=== PATIENT | male | born 1950 | race Caucasian/White ===

== ENCOUNTER 2025-02-17 22:03 | Emergency (ER) | payer SELFPAY ==
[~2025-02-17] VITALS: Ht 170.2 cm; Wt 120.0 kg
[2025-02-17 22:20] VITALS: BP 138/82; PULSE 84; RESP 18; TEMP 98; O2SAT 96
[2025-02-17 23:08] LABS: PLATELET COUNT (AUTO) 199 K/uL (150-450); RED BLOOD CELL COUNT(AUTO) 5.49 MIL/uL (4.50-5.90); RED CELL DISTRIBUTION WIDTH 13.1 % (11.5-14.5); WHITE BLOOD COUNT (AUTO) 11.1 K/uL (4.5-11.0)
[2025-02-17] MEDS: ZINC OXIDE 16% PASTE 57 GM TUBE TP ONE (23:14)
[2025-02-17 23:17] LABS: CALCIUM, TOTAL 9.2 mg/dL (8.8-10.5); CREATININE 0.71 mg/dL (0.60-1.30); GLOMERULAR FILTR. RATE CALC > 60 mL/min (>60); GLUCOSE,RANDOM 103 mg/dL (70-110); SODIUM SERUM 135 mmol/L (136-145); UREA NITROGEN, BLOOD 12 mg/dL (7-18)
== END 2025-02-18 00:48 | disposition home or self-care (01) ==
LOC: EMS 22:03
DX: L98.491 Non-pressure chronic ulcer of skin of other sites limited to breakdown of skin (principal); I10 Essential (primary) hypertension; X58.XXXA Exposure to other specified factors, initial encounter
CPT/HCPCS: 80048; 85025; 99283

== ENCOUNTER 2025-02-25 16:17 | Inpatient (IN) | payer MEDICAID ==
[~2025-02-25] VITALS: Ht 160 cm; Wt 84.7 kg
[2025-02-25 17:04] LABS: PLATELET COUNT (AUTO) 192 K/uL (150-450); RED BLOOD CELL COUNT(AUTO) 5.09 MIL/uL (4.50-5.90); RED CELL DISTRIBUTION WIDTH 12.9 % (11.5-14.5); WHITE BLOOD COUNT (AUTO) 7.7 K/uL (4.5-11.0)
[2025-02-25 17:12] LABS: CALCIUM, TOTAL 9.0 mg/dL (8.8-10.5); CREATININE 0.79 mg/dL (0.60-1.30); GLOMERULAR FILTR. RATE CALC > 60 mL/min (>60); GLUCOSE,RANDOM 129 mg/dL (70-110); SODIUM SERUM 140 mmol/L (136-145); UREA NITROGEN, BLOOD 13 mg/dL (7-18)
[2025-02-25] MEDS ORDERED: SODIUM CHLORIDE 0.9% 100 ML ONE (18:13)
[2025-02-25] MEDS ORDERED: IOHEXOL 350 MG/ML 100 ML VIAL ONE (18:13)
[2025-02-25] MEDS ORDERED: 0.9% SODIUM CHLORIDE 10 ML SYRINGE IVP ONE (18:13)
[2025-02-25] MEDS ORDERED: ACETAMINOPHEN 325 MG TABLET PO PRN (22:00)
[2025-02-25] MEDS ORDERED: ZOLPIDEM TARTRATE 5 MG TABLET PO PRN (22:00)
[2025-02-25] MEDS ORDERED: MAGNESIUM HYDROXIDE SUSPENSION 30 ML UDCUP PO PRN (22:00)
[2025-02-25] MEDS ORDERED: BISACODYL 10 MG RECTAL RECTAL SUPPOSITORY PR PRN (22:00)
[2025-02-25] MEDS ORDERED: HYDROCODONE/ACETAMINOPHEN 5-325 MG TABLET PO PRN (22:00)
[2025-02-25] MEDS ORDERED: PIPERACILLIN SODIUM/TAZOBACTAM 2.25 GM in DEXTROSE 5%-WATER 50 ML IV ONE (22:00)
[2025-02-25] MEDS ORDERED: MORPHINE SULFATE 2 MG/ML SYRINGE IVP PRN (22:00)
[2025-02-25] MEDS ORDERED: ONDANSETRON HCL 4 MG/2 ML VIAL IVP PRN (22:00)
[2025-02-25] MEDS: PIPERACILLIN/TAZO 3.375 GM/D5W 50 ML IV SCH (22:56)
[2025-02-26 00:30] VITALS: BP 105/65; PULSE 56; RESP 18; TEMP 98.2; O2SAT 98
[2025-02-26] MEDS ORDERED: SODIUM CHLORIDE 0.9% 500 ML IV ONE (02:16)
[2025-02-26] MEDS: HEPARIN SODIUM,PORCINE 5,000 UNITS/ML VIAL SQ SCH (02:22)
[2025-02-26 04:54] VITALS: BP 108/64; PULSE 62; RESP 18; TEMP 97.7; O2SAT 96
[2025-02-26 08:17] LABS: PLATELET COUNT (AUTO) 178 K/uL (150-450); RED BLOOD CELL COUNT(AUTO) 5.03 MIL/uL (4.50-5.90); RED CELL DISTRIBUTION WIDTH 13.4 % (11.5-14.5); WHITE BLOOD COUNT (AUTO) 7.1 K/uL (4.5-11.0)
[2025-02-26] MEDS: PANTOPRAZOLE SODIUM 40 MG DR TABLET PO SCH (08:24)
[2025-02-26] MEDS: DOCUSATE SODIUM 100 MG CAPSULE PO SCH (08:24)
[2025-02-26 08:27] LABS: CALCIUM, TOTAL 8.8 mg/dL (8.8-10.5); CREATININE 0.84 mg/dL (0.60-1.30); GLOMERULAR FILTR. RATE CALC > 60 mL/min (>60); GLUCOSE,RANDOM 99 mg/dL (70-110); SODIUM SERUM 141 mmol/L (136-145); UREA NITROGEN, BLOOD 15 mg/dL (7-18)
[2025-02-26 08:58] VITALS: BP 131/88; PULSE 62; RESP 18; TEMP 98; O2SAT 98
[2025-02-26 11:35] LABS: APPEARANCE,URINE CLEAR (CLEAR); GLUCOSE, URINE (UA) NEGATIVE (NEGATIVE); LEUKOCYTE ESTERASE ,URINE NEGATIVE (NEGATIVE); NITRATE,URINE NEGATIVE (NEGATIVE); OCCULT BLOOD,URINE NEGATIVE (NEGATIVE); SPECIFIC GRAVITIY, URINE 1.038 (1.003-1.030)
[2025-02-26 17:11] VITALS: BP 110/67; PULSE 64; RESP 18; TEMP 98.1; O2SAT 96
[2025-02-26 19:50] VITALS: BP 125/69; PULSE 59; RESP 16; TEMP 97.7; O2SAT 95
[2025-02-27 04:10] VITALS: BP 139/83; PULSE 62; RESP 20; TEMP 97.9; O2SAT 97
[2025-02-27 07:14] LABS: PLATELET COUNT (AUTO) 180 K/uL (150-450); RED BLOOD CELL COUNT(AUTO) 5.27 MIL/uL (4.50-5.90); RED CELL DISTRIBUTION WIDTH 13.5 % (11.5-14.5); WHITE BLOOD COUNT (AUTO) 6.8 K/uL (4.5-11.0)
[2025-02-27 07:23] LABS: CALCIUM, TOTAL 8.8 mg/dL (8.8-10.5); CREATININE 0.86 mg/dL (0.60-1.30); GLOMERULAR FILTR. RATE CALC > 60 mL/min (>60); GLUCOSE,RANDOM 97 mg/dL (70-110); SODIUM SERUM 138 mmol/L (136-145); UREA NITROGEN, BLOOD 11 mg/dL (7-18)
[2025-02-27 08:21] VITALS: BP 101/62; PULSE 54; RESP 16; TEMP 97.9; O2SAT 96
[2025-02-27 16:47] VITALS: BP 121/65; PULSE 55; RESP 16; TEMP 98.1; O2SAT 98
[2025-02-27] MEDS ORDERED: CLOT15CR29 TP (18:34)
[2025-02-27] MEDS: POTASSIUM CHLORIDE 20 MEQ ER TABLET PO ONE (18:49)
== END 2025-02-27 20:50 | disposition home or self-care (01) | DRG 254 ==
LOC: EMS 16:17 → EDH 21:57 → 4E 02-26 00:10
PROVIDERS: ADMIT Internal Medicine; ATTEND Internal Medicine
DX: K62.89 Other specified diseases of anus and rectum (principal); K61.0 Anal abscess; I10 Essential (primary) hypertension; K59.00 Constipation, unspecified; Z59.00 Homelessness unspecified
CPT/HCPCS: 71045; 74018; 74177; 80048; 81003; 83690; 85025; 85610; 85730; 86850; 86900; 86901; 87040; 93005; 99285; G0378; J1644; J2543; J7040; J7050; J7060; 36415-L1; 36415-TC